=== PATIENT | female | born 1935 | race Two or more races ===

== ENCOUNTER → 2024-12-24 | Outpatient (CLI) | payer MEDICARE, BC, SELFPAY ==
[2024-12-24 13:23] LABS: Basophils % (Auto) 1 % (0-2.5); Eosinophils # (Auto) 0.1 Thou/mm3 (0.0-0.5); Eosinophils % (Auto) 1 % (0-10); Hematocrit 43.2 % (36.0-46.0); Hemoglobin 14.6 g/dL (12.0-16.0); Immature Granulocytes % (Auto) 0 % (0-0); Immature Granulocytes Auto 0.01 Thou/mm3 (0.00-0.00); Lymphocytes % (Auto) 46 % (10-50); Mean Corpuscular HGB Conc 33.8 g/dl (31.0-37.0); Mean Corpuscular Hemoglobin 30.4 pg (25.0-35.0); Mean Corpuscular Volume 90 fL (80-100); Monocytes # (Auto) 0.3 Thou/mm3 (0.0-0.8); Monocytes % (Auto) 5 % (0-12); Neutrophils % (Auto) 47 % (37-80); Nucleated Red Blood Cell % 0 /100 WBC (0); Platelet Count 168 Thou/mm3 (140-440); RDW Standard Deviation 43.9 fL (36.4-46.3); Red Blood Count 4.81 Miln/mm3 (4.00-5.20); White Blood Count 6.5 Thou/mm3 (3.6-11.0)
[2024-12-24 13:46] LABS: Albumin, Serum 4.1 gm/dL (3.4-4.8); Anion Gap 7 (7-16); BUN/Creatinine Ratio 16 Ratio (12-20); Blood Urea Nitrogen 16 mg/dL (9-23); Calcium 10.2 mg/dL (8.3-10.6); Calcium (Corrected) 10.2 mg/dL (8.5-10.1); Carbon Dioxide 28.8 mMol/L (20.0-31.0); Chloride 106 mMol/L (98-107); Cholesterol 226 mg/dL (132-200); Glucose 96 mg/dL (74-106); HDL Cholesterol 76 mg/dL (40-60); LDL Cholesterol,Calculated 123 mg/dL (0-130); Osmolality,Calculated 284 (275-295); Phosphorous 3.2 mg/dL (2.4-5.1); Potassium 4.5 mMol/L (3.4-5.1); Sodium 142 mMol/L (136-145); Triglycerides 135 mg/dL (30-150); eGFR 54 See Note
== END | disposition home or self-care (01) ==
LOC: COPL 12:43
PROVIDERS: Referring Provider Internal Medicine Cardiovascular Disease; Visit Provider Internal Medicine Cardiovascular Disease
DX: I20.89 Other forms of angina pectoris (principal); I48.21 Permanent atrial fibrillation; I35.0 Nonrheumatic aortic (valve) stenosis; E78.00 Pure hypercholesterolemia, unspecified; K80.20 Calculus of gallbladder without cholecystitis without obstruction; K57.90 Diverticulosis of intestine, part unspecified, without perforation or abscess without bleeding
CPT/HCPCS: 36415; 80061; 80069; 85025

== ENCOUNTER → 2025-02-14 | Outpatient (CLI) | payer MEDICARE, BC, SELFPAY ==
--- NOTE | 2025-02-14 11:30 | XR_ITS ---
Examination: Abdomen sonogram, complete Date and time of exam: February 14, 2025 11:20 AM Indications: Epigastric pain beginning several months ago. Technique: Multiple real-time grayscale transabdominal sonographic images of the abdomen have been obtained. Findings: Multiple small gallstones Gallbladder wall 0.4 cm no edema Common bile duct 0.2 cm Pancreatic head 2.0 cm Enlarged Liver 15.4 cm smooth contour no focal liver lesions Normal hepatopedal portal flow Patent IVC Right kidney 8.6 cm cortex 1.4 cm Left kidney 9.5 cm cortex 1.4 cm 8mm pole left cyst Moderate left renal parenchymal scar formation Spleen 8.6 cm Impression: Cholelithiasis, negative for cholecystitis Moderate left renal parenchymal scar formation
== END | disposition home or self-care (01) ==
PROVIDERS: PCP Physician Assistant; Referring Provider Physician Assistant; Visit Provider Physician Assistant
DX: K80.20 Calculus of gallbladder without cholecystitis without obstruction (principal); N28.89 Other specified disorders of kidney and ureter
CPT/HCPCS: 76700

== ENCOUNTER 2025-04-02 13:31 | Emergency (ER) | payer MEDICARE, BC, SELFPAY ==
[2025-04-02 13:33] VITALS: BMI 31.4
[2025-04-02 13:48] VITALS: BP 128/83; PULSE 116; RESP 20; TEMP 37.1; O2SAT 95
[2025-04-02] MEDS: MethylPREDNISolone SOD SUCC 62.5 MG/ML 2ML VIAL 125 MG IM (15:43)
[2025-04-02 16:06] VITALS: BP 103/64; PULSE 85; RESP 17; TEMP 37.1; O2SAT 97
--- NOTE | 2025-04-02 16:40 | EDNOTE_ITS ---
ED Allergic Reaction RME/HPI General Chief complaint: Allergic Reaction Stated complaint: ALLERGIC REACTION X3 Time Seen by Provider: 04/02/25 14:19 Arrival date/time: 04/02/25 13:31 Limitations: no limitations RME / HPI RME / HPI narrative: 89 year old female with a recent history of urinary tract infection presents with complaints of a rash and itching that began in the last 2 days. The patient was seen at their primary care provider's office for the UTI, where they were given a shot of prednisone and prescribed ciprofloxacin. The rash developed after starting the ciprofloxacin and has been associated with rash. The patient denies any fever or new systemic symptoms but is concerned about the rash and itching. Related Data Previous Rx's ?Medication ?Instructions ?Recorded ibuprofen 600 mg tablet 1 tab PO Q8HR PRN pain #30 t abs 03/26/15 cyclobenzaprine 10 mg tablet 10 mg PO TID PRN muscle s pasm #30 01/20/19 tabs ibuprofen 800 mg tablet 800 mg PO TID PRN pain #30 t abs 01/20/19 prednisone 20 mg tablet 20 mg PO QDAY rash #18 tabs 04/02/25 Allergies Allergy/AdvReac Type Severity Reaction Status Date / Time atorvastatin Allergy Severe Anaphylaxis Verified 04/02/25 13:36 ciprofloxacin Allergy Severe Hives Verified 04/02/25 15:47 Review of Systems Review of Systems Systems Reviewed: All systems reviewed, normal except as documented Past Medical History Past Medical History CARDIAC: Positive Hypertension (no longer takes medication ); Negative Congestive Heart Failure RESPIRATORY: Negative Chronic Obstructive Pulmonary Disease (COPD) GENITOURINARY: Negative Renal Disease ENDOCRINE: Negative Diabetes Mellitus Type 1 or Diabetes Mellitus Type 2 HEMATOLOGIC: Positive Blood Disorders (non hodgkin's lymphoma) Social History SMOKING STATUS: Never smoker SUBSTANCE USE: does not use ED Exam General Limitations: Present no limitations General appearance: Present alert and in no apparent distress Head Head exam: Present atraumatic, normocephalic and normal inspection Eye Eye exam: Present normal appearance, PERRL and EOMI ENT ENT exam: Present normal exam, normal oropharynx and mucous membranes moist Neck Neck exam: Present normal inspection, full ROM and trachea midline Chest Chest inspection: Present normal inspection and symmetric chest wall rise Respiratory Respiratory exam: Present normal lung sounds bilaterally Cardiovascular Cardiovascular exam: Present regular rate, normal rhythm and normal heart sounds Abdominal Exam Abdominal exam: Present soft and normal bowel sounds Extremities Exam Extremities exam: Present normal inspection and full ROM Back Exam Back exam: Present normal inspection and full ROM Neurological Exam Neurological exam: Present alert, oriented X3 and CN II-XII intact Psychiatric Psychiatric exam: Present normal affect and normal mood Skin Skin exam: Present warm, dry, intact, normal color and rash (Papular rash throughout body including scalp, neck, abdomen, back, legs, arms. The face is spared, not vesicular. ) Course Quality Measures none Orders Category Date Time Status MethylPREDNISolone.* [SoluMEDROL Inj] Med 04/02/25 14:55 Discontinued 125 mg IM X1 ONE Vital Signs Vital signs: Vital Signs Temperature 98.8 F 04/02/25 13:48 Pulse Rate 116 H 04/02/25 13:48 Respiratory Rate 20 04/02/25 13:48 Blood Pressure 128/83 04/02/25 13:48 Pulse Oximetry (%) 95 04/02/25 13:48 Oxygen Delivery Method Room Air 04/02/25 13:48 Pulse ox is 95% on room air which is adequate. Allergic Reaction MDM Narrative MDM Narrative:: Keya Mora am scribing for and in the presence of Dr. Etienne. Patient data External records reviewed:: [facility] previous records (I reviewed ED visit on 01/20/2019 ) Clinical information provided by:: patient Social determinants that could affect healthcare access:: none Patient has the following chronic illnesses:: Hypertension How is presenting disease/condition affected by chronic disease/condition?: uneffected by Evaluation data The following diagnostics were reviewed and interpreted by me:: other (specify) (No diagnostics performed ) Lab and/or radiology exams considered but not ordered:: None Interpretation Summary: n/a Medications / Prescriptions Medications or Prescriptions considered but not ordered:: None Medication administrations:: Medication Administration History Discontinued Medications Methylprednisolone Sodium Succinate (Methylprednisolone Sod Succ 62.5 Mg/Ml 2ml Vial) 125 mg IM X1 ONE Stop: 04/02/25 14:56 Last Admin: 04/02/25 15:43 Dose: 125 mg Documented By: EF See above Consultations Consultation(s) initiated? (list below): No Diagnosis Differential Diagnosis allergic reaction: allergic reaction, contact dermatitis, adverse reaction to drug, viral enanthem and urticaria Most likely diagnosis given after review of the tests above:: Allergic reaction to medication Admission Indicated Admission indicated?: not indicated Admission Request Was there a request for admission?: No Disposition Plan Disposition Plan: Discharge Discharge Attestation Discharge Attestation: The patient and all family members were given an opportunity to ask questions and understood the discharge instructions. Discharge instructions specifically effects, indications for sooner follow up or return to the emergency department, and the expected course of current diagnosis. Patient condition: Stable Discharge Plan Plan Patient Disposition: HOME (Self Care) Prescriptions/Referrals Prescriptions/Med Rec: New prednisone 20 mg tablet 20 mg PO QDAY MDD 3 Qty: 18 0RF Taper: Prednisone Taper 20 mg DAILY for 2 Days and 0 Hour 10 mg DAILY for 2 Days and 0 Hour 5 mg DAILY for 7 Days and 0 Hour Rx Instructions: Take 3 tabs by mouth daily for 3 days then 2 tablets by mouth daily for 3 days then then 1 tablet by mouth daily then D/C No Action ibuprofen 600 MG tablet 1 tab PO Q8HR PRN (Reason: pain) Qty: 30 0RF cyclobenzaprine 10 mg tablet 10 mg PO TID PRN (Reason: muscle spasm) Qty: 30 0RF ibuprofen 800 mg tablet 800 mg PO TID PRN (Reason: pain) Qty: 30 0RF Referrals: Cristy High MD [Primary Care Provider] - In 1 week Problem List Clinical Impression: Allergic reaction Patient/Caregiver Discharge Instructions Education Materials: ED Medicine Reaction: Allergic Additional Instructions: Follow-up with your primary care doctor in 3 to 5 days for recheck. You can return to the emergency department sooner if symptoms worsen or if you notice any new, concerning issues. Print Language: Malian Stand Alone Forms: [facility] Award Info., Patient Portal Info Letter
[2025-04-02 17:37] VITALS: BP 131/74; PULSE 78; RESP 16; TEMP 36.7; O2SAT 99
== END 2025-04-02 17:19 | disposition home or self-care (01) ==
PROVIDERS: Emergency Provider Family Medicine
DX: T78.40XA Allergy, unspecified, initial encounter (principal); R21 Rash and other nonspecific skin eruption
CPT/HCPCS: 96372; 99283; J2919